=== PATIENT | female | born 1955 | race Caucasian/White ===

== ENCOUNTER 2019-10-30 11:33 | Emergency (ER) | payer BC, OTHER ==
[2019-10-30] MEDS ORDERED: NS 0.9% 1000 ML** 1,000 ML IV ONE (11:49)
[2019-10-30] MEDS ORDERED: methylPREDNISolone 125 MG* 2 ML VIAL IV ONE (11:49)
--- NOTE | 2019-10-30 11:57 | ED ---
Shortness of Breath - HPI Summary HPI Summary: 63-year-old female with a significant past medical history of osteopenia, ulcerative colitis, migraine without aura, supraventricular premature beats, moderate cigarette smoker presents to the emergency department today with chief complaint of shortness of breath, cough, wheezing. Patient was seen by her primary care provider today for follow-up as she has been having these symptoms for approximately 4 weeks. Patient states her symptoms are becoming acutely worse over the last week. One week prior patient had negative results from Covid19 serology. Patient recently finished a Medrol Dosepak with slight improvement in her cough although she still gasps for air frequently. Patient has evidence of accessory muscle use and labored breathing in the emergency department although her oxygen saturation is 100%. No audible wheezing or rales noted. No stridor is appreciated. Patient states she is up-to-date with her immunizations. Patient continues to be a half pack a day smoker. Patient is otherwise well and denies fevers, chest pain, abdominal pain, nausea vomiting diarrhea, rash. - History of Current Complaint Chief Complaint: EDShortnessOfBreath Time Seen by Provider: 10/30/19 11:35 Hx Obtained From: Patient Onset/Duration: Gradual Onset Current Severity: Moderate Dyspnea At: Rest Alleviating Factors: Bronchodilators, Oxygen, Upright Position Associated Signs & Symptoms: Cough (Productive), Wheezing - Allergy/Home Medications Allergies/Adverse Reactions: Allergies Allergy/AdvReac Type Severity Reaction Status Date / Time epinephrine Allergy Flushing Verified 10/30/19 11:51 Sulfa (Sulfonamide Allergy Rash And Verified 10/30/19 11:51 Antibiotics) Itching temazepam Allergy Rash And Verified 10/30/19 11:51 Itching Home Medications: Home Medications Gabapentin CAP(*) [Neurontin 300 CAP(*)] 600 mg PO QID 08/03/14 [History Confirmed 10/30/19] INJ-TFZW-Umbgmebi Es (Nf) [Excedrin Extra Strength 250-250-65 mg (NF)] 1 tab PO Q6H PRN 07/14/19 [History Confirmed 10/30/19] Citalopram TAB* [Celexa TAB*] 40 mg PO DAILY 07/14/19 [History Confirmed ] Omeprazole 20 mg PO DAILY 07/14/19 [History Confirmed 10/30/19] SUMAtriptan SQ* [Imitrex SQ*] 6 mg SUBCUT Q24H PRN 07/14/19 [History Confirmed 10/30/19] buPROPion SR TAB* [Wellbutrin SR TAB*] 200 mg PO BID 07/14/19 [History Confirmed 10/30/19] clonazePAM TAB(*) [Klonopin TAB(*)] 1 tab PO Q8H PRN 07/14/19 [History Confirmed 10/30/19] Albuterol HFA INHALER* [Ventolin HFA Inhaler*] 2 puff INH Q4H PRN 10/30/19 [ History Confirmed 10/30/19] LORazepam TAB(*) [Ativan 1 MG TAB (*)] 1 mg PO Q6H PRN #12 tab MDD 4 10/30/19 [ Rx] PMH/Surg Hx/FS Hx/Imm Hx Endocrine/Hematology History: Denies: Hx Diabetes, Hx Thyroid Disease Cardiovascular History: Denies: Hx Hypertension, Hx Pacemaker/ICD Respiratory History: Denies: Hx Asthma, Hx Chronic Obstructive Pulmonary Disease (COPD) GI History: Reports: Other GI Disorders - HX OF ULCERATIVE COLITIS - NO FLARE UP IN 15 YEARS OR MORE Denies: Hx Ulcer History: Reports: Other Problems/Disorders - FREQUENT UTI'S, NONE NOW Denies: Hx Renal Disease Musculoskeletal History: Reports: Other Musculoskeletal History - CERVICAL FUSION 1994 Denies: Hx Osteoporosis Sensory History: Reports: Hx Cataracts - BILATERAL, Hx Glaucoma - BILATERAL Denies: Hx Hearing Aid Opthamlomology History: Reports: Hx Cataracts - BILATERAL, Hx Glaucoma - BILATERAL Neurological History: Reports: Hx Migraine - 3-4 PER MONTH Psychiatric History: Denies: Hx Panic Disorder - Cancer History Hx Chemotherapy: No Hx Radiation Therapy: No - Surgical History Surgery Procedure, Year, and Place: 1981 Hysterectomy. Bowel obstruction surgeries. Cervical Fusion Hx Anesthesia Reactions: No Infectious Disease History: No Infectious Disease History: Denies: Hx Hepatitis, Hx Human Immunodeficiency Virus (HIV), Traveled Outside the [place] in Last 30 Days - Family History Known Family History: Positive: Cardiac Disease, Hypertension - Social History Alcohol Use: Occasionally Substance Use Type: Reports: Marijuana Substance Use Comment - Amount & Last Used: occasional Hx Tobacco Use: Yes Smoking Status (MU): Heavy Every Day Tobacco Smoker Type: Cigarettes Amount Used/How Often: 1 PPD Length of Time of Smoking/Using Tobacco: 25 YEARS AGO Review of Systems Constitutional: Negative Eyes: Negative ENT: Negative Cardiovascular: Negative Positive: Shortness Of Breath, Cough Gastrointestinal: Negative Genitourinary: Negative Musculoskeletal: Negative Skin: Negative Neurological/Mental Status: Negative Positive: Anxious. Negative: Depressed All Other Systems Reviewed And Are Negative: Yes Physical Exam - Summary Physical Exam Summary: Patient appears to have evidence of accessory muscle use with respiration. Cough is noted however there is no wheezing. No stridor noted. Auscultation of the lungs is clear. Patient is able to speak in 5 word sentences however she does appear fatigued. Triage Information Reviewed: Yes Vital Signs On Initial Exam: Initial Vitals Temp Pulse Resp BP Pulse Ox 97.1 F 103 22 153/100 100 10/30/19 11:43 10/30/19 11:43 10/30/19 11:43 10/30/19 11:43 10/30/19 11:43 Vital Signs Reviewed: Yes Appearance: Positive: Well-Appearing, No Pain Distress, Well-Nourished Skin: Positive: Warm, Skin Color Reflects Adequate Perfusion Eyes: Positive: EOMI, TIFFANIE ENT: Positive: Hearing grossly normal Respiratory/Lung Sounds: Positive: Breath Sounds Present, Decreased Breath Sounds, Fatigue. Negative: Stridor, Wheezes, Unable to speak in full sentences Cardiovascular: Positive: RRR, S1, S2 Abdomen Description: Positive: Nontender, Soft Bowel Sounds: Positive: Present Musculoskeletal: Positive: Strength/ROM Intact Neurological: Positive: Sensory/Motor Intact, Alert, Oriented to Person Place, Time, Normal Gait, Facial Symmetry, Speech Normal Psychiatric: Positive: Affect/Mood Appropriate, Anxious AVPU Assessment: Alert Procedures - Sedation Patient Received Moderate/Deep Sedation with Procedure: No Diagnostics - Vital Signs Vital Signs Temp Pulse Resp BP Pulse Ox 10/30/19 11:43 97.1 F 103 22 153/100 100 - Laboratory Result Diagrams: 10/30/19 13:57 10/30/19 13:00 Lab Statement: Any lab studies that have been ordered have been reviewed, and results considered in the medical decision making process. Course/Dx - Course Course Of Treatment: Patient was evaluated in the emergency department today for shortness of breath. Patient was tested for covid 19 today and the Department of Health will contact her in 2-3 days with results. Patient was sent here from her primary care's office to due to shortness of breath. EKG was done promptly which shows no evidence of STEMI. Sinus rhythm at a rate of 73 bpm. Mild left axis deviation. Normal IN and QT interval. There are T-wave inversions noted in lead 2, 3, aVF, V4. T-wave inversions are new when compared to prior EKG done on 11/14/11 this is likely due to increased respiratory effort. Chest x-ray is negative for pathology. Laboratory studies returned showing no evidence of leukocytosis with white blood cell count of 7.0. There are no significant likely derangements. No evidence of anemia. Normal kidney function. BNP is within normal limits, troponin 0.00. Lactic acid returned at 3.6 which is likely elevated due to hyperventilation. Venous blood gas returned showing pH of 7.58 with a PCO2 of 23 and bicarbonate of 24.8. Patient is in respiratory alkalosis. D-dimer negative. Due to patient s symptoms CTA of the chest was obtained to further evaluate possibility of pulmonary embolism. CTA shows no evidence of pulmonary artery filling defect consistent with pulmonary embolism. Patients symptoms appear to be linked to anxiety. Patient is in no acute distress her vital signs are stable with no evidence of hypoxia. Patient discharged to outpatient follow-up. - Diagnoses Differential Diagnosis/HQI/PQRI: Positive: Airway Obstruction, Airway Foreign Body, Asthma, Bronchitis, CHF, COPD Exacerbation, Pneumonia, Pulmonary Embolism , SARS Provider Diagnoses: Dyspnea, Hyperventilation, Anxiety - Critical Care Time Critical Care Statement: Critical care time is provided exclusive of any time spent performing procedures. Discharge ED - Sign-Out/Discharge Documenting (check all that apply): Patient Departure - Discharge Plan Condition: Stable Disposition: HOME Prescriptions: LORazepam TAB(*) [Ativan 1 MG TAB (*)] 1 mg PO Q6H PRN #12 tab MDD 4 PRN Reason: Anxiety Patient Education Materials: Dyspnea (ED) Forms: COVID-19 Tested & Isolation Referrals: Sadia German MD [Primary Care Provider] - 2 Days Additional Instructions: Please take antianxiety medications as directed. Please not drive taking this medicine. Please follow up with your primary care provider in 2-3 days for further evaluation and management. Please return to this emergency department immediately should you develop any new or worsening symptoms. - Billing Disposition and Condition Condition: STABLE Disposition: Home
[2019-10-30] MEDS ORDERED: clonazePAM TAB(*) 1 MG PO ONE (12:02)
--- OUTSIDE RECORDS SUMMARY | 2019-10-30 12:06 | XMS REPORT | Continuity of Care Document ---
:1955 External Reference #:[id number] Author Name Charisma Serrano MD (transmitted by agent of provider Nadia Brandon) Address [address], [place] [address] Care Team Providers Name Role Phone Sadia German M.D. 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 Onset: 12/11/2011 Supraventricular premature beats Feroz Alvarenga M.D. Onset: 2011 Migraine without aura Peyton Hurtado M.D. Onset: 12/08/2015 Low back pain Peyton Hurtado M.D. Onset: 12/08/2015 Ulcerative colitis Morales Rolon NP Onset: 03/07/2017 Restless legs Fidel Rodriguez M.D.,FACP Onset: 08/15/2017 Moderate cigarette smoker (10-19 Fidel Rodriguez M.D.,FACP Onset: 2017 cigs/day) Osteopenia Fidel Rodriguez M.D.,FACP Onset: 02/27/2018 Social History Type Date Description Comments Sex Unknown Tobacco Use Start: Unknown Patient is a current cigarette smoker, smokes every day Tobacco Use Start: Unknown Current Cigarette 3/4 - Smoker 1 Pack Daily Smoking Status Reviewed: 08/03/19 Current Cigarette 3/4 - Smoker 1 Pack Daily ETOH Use Rarely consumes alcohol Tobacco Use Start: Unknown Heavy tobacco smoker 15 cigarettes per day (more than 10 cigarettes/day) Recreational Drug Use Denies Drug Use Exercise Type/Frequency Exercises regularly walking Allergies, Adverse Reactions, Alerts Active Allergies Reaction Severity Comments Date Sulfa Antibiotics 12/05/2011 Restoril 12/05/2011 Epinephrine elevated heart rate, flushing 12/11/2011 Chantix Depression Severe 01/05/2015 Medications Active Medications SIG Qnty Indications Ordering Date Provider Amoxicillin 1 by mouth three 30caps J01.90 Charisma Serrano MD 08/03/2019 500mg times a day Capsules Citalopram 1 by mouth every 90tabs F32.1 Karolyn Manley, 05/01/2019 Hydrobromide amarilis MALHOTRA 40mg Tablets Bupropion take 1 tab twice 180tabs F32.1 Morales Rolon NP 12/24/2018 Hydrochloride ER (SR) daily 200mg Tablets ER 12HR Clonazepam 1 by mouth every 50tabs F41.9 Morales Rolon NP 12/10/2018 0.5mg 8 hours as needed Tablets for anxiety, use sparingly Zolpidem Tartrate take 1/2 to 1 30tabs G47.00 Morales Rolon NP 11/07/2018 10mg tablet by mouth Tablets every night at bedtime as needed Premarin 0.5g per vagina 30gm Sadia German MD 08/26/2018 0.625mg/GM at bedtime every Cream night at bedtime x 14 nights then 2x/week Sumatriptan Succinate one SC as needed 3ml G43.909 Drew Palma 06/10/2018 for migraine. savannah Estrada M.D. 6mg/0.5ML Solution repeat once in 24 Auto-Inject hrs Gabapentin take 1 tablet by 240tabs Sadia German MD 12/09/2013 600mg mouth every day Tablets at noon then take 3 tablets by mouth every day at bedtime Omeprazole take 1 capsule by 90caps Morales Rolon NP 20mg mouth every day Capsules DR Cefuroxime Axetil 1 tabs by mouth Unknown 500mg twice a day for Tablets 10 days Azithromycin Take Two Tablets Unknown 250mg By Mouth Now, Tablets Then Then Take 1 Tablet By Mouth Every Day Vancomycin Christiano Woods, 125mg M.D. Capsules Immunizations CPT Code Status Date Vaccine Reaction Lot # [id number] Given 04/29/2019 Influenza Virus Vaccine, no immediate reaction. [id number] Quadrivalent, Split, dg Preservative Free 65905 Given 06/10/2018 Influenza Virus Vaccine, [id number] Quadrivalent, Split, Preservative Free 84427 Given 05/06/2017 Pneumonia Vaccine no reaction, pt [id number] tolerated well 37979 Given 05/06/2017 Influenza Virus Vaccine, no immediate reaction, [id number] Quadrivalent, Split, pt tolerated well Preservative Free Vital Signs Date Vital Result Comment 08/03/2019 3:30pm Height 66 inches 5'6" Weight 168.00 lb Heart Rate 68 /min BP Systolic 142 mmHg BP Diastolic 82 mmHg Body Temperature 98.1 F O2 % BldC Oximetry 96 % BMI (Body Mass Index) 27.1 kg/m2 06/10/2019 1:45pm Height 65.75 inches 5'5.75" Weight 177.00 lb Heart Rate 79 /min BP Systolic Sitting 140 mmHg BP Diastolic Sitting 92 mmHg O2 % BldC Oximetry 98 % BMI (Body Mass Index) 28.8 kg/m2 Results Test Acquired Date Facility Test Result H/L Range Note Surgical 07/21/2019 [facility] Surgical SEE RESULT [address] [place] [address] [phone] PDFReport SEE IMAGE Basic Metabolic 06/10/2019 [facility] Sodium 141 mmol/L Normal 135-145 Panel [address] [place] [address] [phone] Potassium 4.2 mmol/L Normal 3.5-5.0 Chloride 104 mmol/L Normal 101-111 Co2 Carbon Dioxide 30 mmol/L Normal 22-32 Anion Gap 7 mmol/L Normal 2-11 Glucose 86 mg/dL Normal 70-100 Blood Urea Nitrogen 17 mg/dL Normal 6-24 Creatinine 0.97 mg/dL High 0.51-0.95 BUN/Creatinine Ratio 17.5 Normal 8-20 Calcium 9.6 mg/dL Normal 8.6-10.3 Egfr Non- 58.0 >60 Egfr 70.2 >60 2 Laboratory test 06/10/2019 [facility] Magnesium 2.0 mg/dL Normal 1.9-2.7 finding [address] [place] [address] [phone] CBC Auto Diff 04/29/2019 [facility] White Blood 5.7 Normal 3.5 -10.[address] Count 10^3/[place] [address] [phone] Red Blood Count 4.74 10^6/uL Normal 3.70-4.87 Hemoglobin 15.0 g/dL Normal 12.0-16.0 Hematocrit 44 % Normal 35-47 Mean Corpuscular Volume 92 fL Normal 80-97 Mean Corpuscular Hemoglobin 32 pg High 27-31 Mean Corpuscular HGB Conc 34 g/dL Normal 31-36 Red Cell Distribution Width 16 % High 10-15 Platelet Count 215 10^3/uL Normal 150-450 Mean Platelet Volume 8.6 fL Normal 7.4-10.4 Abs Neutrophils 3.6 10^3/uL Normal 1.5-7.7 Abs Lymphocytes 1.5 10^3/uL Normal 1.0-4.8 Abs Monocytes 0.4 10^3/uL Normal 0-0.8 Abs Eosinophils 0.2 10^3/uL Normal 0-0.6 Abs Basophils 0.0 10^3/uL Normal 0-0.2 Abs Nucleated RBC 0.0 10^3/uL Granulocyte % 62.9 % Lymphocyte % 26.3 % Monocyte % 7.3 % Eosinophil % 2.8 % Basophil % 0.7 % Nucleated Red Blood Cells % 0.1 Comp Metabolic 04/29/2019 [facility] Sodium 138 mmol/L Normal 135-[address] [place] [address] [phone] Potassium 4.6 mmol/L Normal 3.5-5.0 Chloride 105 mmol/L Normal 101-111 Co2 Carbon Dioxide 27 mmol/L Normal 22-32 Anion Gap 6 mmol/L Normal 2-11 Glucose 92 mg/dL Normal 70-100 Blood Urea Nitrogen 21 mg/dL Normal 6-24 Creatinine 0.83 mg/dL Normal 0.51-0.95 BUN/Creatinine Ratio 25.3 High 8-20 Calcium 9.7 mg/dL Normal 8.6-10.3 Total Protein 6.5 g/dL Normal 6.4-8.9 Albumin 4.1 g/dL Normal 3.2-5.2 Globulin 2.4 g/dL Normal 2-4 Albumin/Globulin Ratio 1.7 Normal 1-3 Total Bilirubin 0.40 mg/dL Normal 0.2-1.0 Alkaline Phosphatase 63 U/L Normal 34-104 Alt 17 U/L Normal 7-52 Ast 19 U/L Normal 13-39 Egfr Non- 69.4 >60 Egfr 84.0 >60 3 1 SEE RESULT BELOW Name: CLAIRE MORENO : [address]: Christiano Gomez DO Acct: [id number] Unit: [id number] AGE: 63 Location: ENDO Re07/21/19 SEX: F Status: DEP REF SPEC: [id number] MAIRA: 07/21/19- SUBM DR: Christiano Gomez DO REQ: [id number] RECD: 07/21/19-1202 STATUS: BALDEV COLBERT DR: Sadia German MD _ ORDERED: LEVEL 4/2 FINAL DIAGNOSIS 1. Colon, random, biopsy: -- Benign colonic mucosa with no significant pathologic abnormalities. -- No evidence of microscopic colitis. 2. Colon, rectum, biopsy: -- Benign colonic mucosa with surface vascular congestion and no other significant pathologic abnormalities. -- No evidence of active or chronic colitis. -- No evidence of microscopic colitis. CLINICAL HISTORY Diarrhea POST-OPERATIVE DIAGNOSIS Colonoscopy: to terminal ileum; good prep; internal hemorrhoid; biopsy random GROSS DESCRIPTION 1. The specimen is received in formalin labeled, Random Colon Biopsies, and consists of a 0.8 x 0.5 x 0.1 cm aggregate of reynolds-pink irregular soft tissue fragments which is submitted entirely in one cassette. CONTINUED ON NEXT PAGE DEPARTMENT OF PATHOLOGY, [address] [place] [address] Yann Cabrales M.D. Director [facility] # [id number] 2. The specimen is received in formalin labeled, Proctitis Biopsies, and consists of two reynolds-pink irregular soft tissue fragments averaging 0.3 x 0.2 x 0.1 cm which are submitted entirely in one cassette. Signed by and Reported on: Shanti Dodd MD 07/22/19 1549 END OF REPORT DEPARTMENT OF PATHOLOGY, [address] [place] [address] Yann Cabrales M.D. Director [facility] # [id number] 2 Because ethnic data is not always readily available, this report includes an eGFR for both -Americans and non- Americans. The National Kidney Disease Education Program (NKDEP) does not endorse the use of the MDRD equation for patients that are not between the ages of 18 and 70, are , have extremes of body size, muscle mass, or nutritional status, or are non- or non-. According to the National Kidney Foundation, irrespective of diagnosis, the stage of the disease is based on the level of kidney function: Stage Description GFR(mL/min/1.73 m(2)) 1 Kidney damage with normal or decreased GFR 90 2 Kidney damage with mild decrease in GFR 60-89 3 Moderate decrease in GFR 30-59 4 Severe decrease in GFR 15-29 5 Kidney failure <15 (or dialysis) 3 Because ethnic data is not always readily available, this report includes an eGFR for both -Americans and non- Americans. The National Kidney Disease Education Program (NKDEP) does not endorse the use of the MDRD equation for patients that are not between the ages of 18 and 70, are , have extremes of body size, muscle mass, or nutritional status, or are non- or non-. According to the National Kidney Foundation, irrespective of diagnosis, the stage of the disease is based on the level of kidney function: Stage Description GFR(mL/min/1.73 m(2)) 1 Kidney damage with normal or decreased GFR 90 2 Kidney damage with mild decrease in GFR 60-89 3 Moderate decrease in GFR 30-59 4 Severe decrease in GFR 15-29 5 Kidney failure <15 (or dialysis) Procedures Date Code Description Status 07/11/2018 [id number] Mammogram Completed 08/22/2017 [id number] Bone Mineral Density Test Completed 06/17/2013 [id number] Colonoscopy Completed Medical Devices Description No Information Available Encounters Type Date Location Provider Dx Diagnosis Office Visit 10/08/2019 [facility] Internal Charisma Serrano MD J01.90 Acute sinusitis, 2:20p Medicine - [place] unspecified Office Visit 08/03/2019 [facility] Internal Charisma Serrano MD J01.90 Acute sinusitis, 3:40p Medicine - [place] unspecified Office Visit 06/10/2019 [facility] Internal Karolyn Manley F33.1 Major depressive 2:00p Medicine Zoran Carlos MD disorder, recurrent, moderate F41.9 Anxiety disorder, unspecified Office Visit 04/29/2019 11:00a [facility] Internal Karolyn F33.1 Major depressive Medicine - [place] Manley MD disorder, recurrent, moderate F41.9 Anxiety disorder, unspecified Z23 Encounter for immunization Assessments Date Code Description Provider 10/08/2019 J01.90 Acute sinusitis, unspecified Charisma Serrano MD 08/03/2019 J01.90 Acute sinusitis, unspecified Charisma Serrano MD 06/10/2019 F33.1 Major depressive disorder, recurrent, moderate Karolyn Manley MD 06/10/2019 F41.9 Anxiety disorder, unspecified Karolyn Manley MD 04/29/2019 F33.1 Major depressive disorder, recurrent, moderate Karolyn Manley MD 04/29/2019 F41.9 Anxiety disorder, unspecified Karolyn Manley MD 04/29/2019 Z23 Encounter for immunization Karolyn Manley MD Plan of Treatment No Information Available Functional Status Description No Information Available Mental Status Description No Information Available Referrals Description No Information Available
--- OUTSIDE RECORDS SUMMARY | 2019-10-30 12:06 | XMS REPORT | Continuity of Care Document ---
:1955 External Reference #:[id number] Author Name Charisma Serrano MD Address [address] [place] [address], [place] [address] Care Team Providers Name Role Phone Sadia German M.D. - Family Medicine Care Team Information Rhinologist Problems Active Problems Provider Date Tobacco user [...] Rolon NP 20mg mouth every day Capsules Cefuroxime Axetil 1 tabs by mouth Unknown 500mg twice a day for Tablets 10 days Azithromycin Take Two Tablets Unknown 250mg By Mouth Now, Tablets Then Then Take 1 Tablet By Mouth Every Day Vancomycin HCL Christiano Gomez 125mg M.D. Capsules Immunizations CPT Code Status Date Vaccine Reaction Lot # [id number] Given 04/29/2019 Influenza Virus Vaccine, no immediate reaction. [id number] Quadrivalent, Split, dg Preservative Free 35922 Given 06/10/2018 Influenza Virus Vaccine, [id number] Quadrivalent, Split, Preservative Free 95551 Given 05/06/2017 Pneumonia Vaccine no reaction, pt [id number] tolerated well 75664 Given 05/06/2017 Influenza Virus Vaccine, no immediate [...] Test Result H/L Range Note Surgical 07/21/2019 [facility] Surgical SEE RESULT [address] [place] [address] [phone] PDFReport SEE IMAGE Basic Metabolic 06/10/2019 [facility] Sodium 141 mmol/L Normal 135-145 [place] [address] [phone] Potassium 4.2 mmol/L Normal 3.5-5.0 Chloride 104 mmol/L Normal 101-111 Co2 Carbon Dioxide 30 mmol/L Normal 22-32 Anion Gap 7 mmol/L Normal 2-11 Glucose 86 mg/dL Normal 70-100 Blood Urea Nitrogen 17 mg/dL Normal 6-24 Creatinine 0.97 mg/dL High 0.51-0.95 BUN/Creatinine Ratio 17.5 Normal 8-20 Calcium 9.6 mg/dL Normal 8.6-10.3 Egfr Non- 58.0 >60 Egfr 70.2 >60 2 Laboratory test 06/10/2019 [facility] Magnesium 2.0 mg/dL Normal 1.9-2.[address] [place] [address] [phone] CBC Auto Diff 04/29/2019 [facility] White Blood 5.7 Normal 3.5 -10.8 [address] [facility] Count 10^3/[place] [address] [phone] Red Blood Count 4.74 10^6/uL Normal 3.70-4.87 [...] Blood Cells % 0.1 Comp Metabolic 04/29/2019 [facility] Sodium 138 mmol/L Normal 135-[address] [place] [address] [phone] Potassium 4.6 mmol/L Normal 3.5-5.0 Chloride 105 [...] [address]: Christiano Gomez DO Acct: [id number] Unit: [id number] AGE: 63 Location: ENDO Re07/21/19 SEX: F Status: DEP REF SPEC: [id number] MAIRA: 07/21/19- SUBM DR: Christiano Gomez DO REQ: [id number] RECD: 07/21/19 STATUS: BALDEV COLBERT DR: Sadia German MD [...] CONTINUED ON NEXT PAGE DEPARTMENT OF PATHOLOGY, [address] [place] [address] Yann Cabrales M.D. Director [facility] # [id number] 2. The specimen is received in formalin labeled, Proctitis Biopsies, and consists of two reynolds-pink irregular soft tissue fragments averaging 0.3 x 0.2 x 0.1 cm which are submitted entirely in one cassette. Signed by and Reported on: Shanti Dodd MD 07/22/19 1549 END OF REPORT DEPARTMENT OF PATHOLOGY, [address] [place] [address] Yann Cabrales M.D. Director [facility] # [id number] 2 Because ethnic data is not always [...] dialysis) Procedures Date Code Description Status 07/11/2018 77571661 Mammogram Completed 08/22/2017 866272510 Bone Mineral Density Test Completed 06/17/2013 66358581 Colonoscopy Completed Medical Devices Description No Information Available Encounters Type Date Location Provider Dx Diagnosis Office Visit 08/03/2019 [facility] Internal Charisma Serrano MD J01.90 Acute sinusitis, 3:40p Medicine - Breanna unspecified Office Visit 06/10/2019 [facility] Internal Karolyn Manley F33.1 Major depressive 2:00p Medicine - Breanna MALHOTRA disorder, recurrent, moderate F41.9 Anxiety disorder, unspecified Office Visit 04/29/2019 11:00a [facility] Internal Karolyn F33.1 Major depressive Medicine [...] immunization Karolyn Manley MD Plan of Treatment 10/08/2019 - Charisma Serrano MDJ01.90 Acute sinusitis, unspecifiedComments:If fever does not resolve within 24 hours of starting the antibiotic please do get tested for the COVID virusWe discussed that you can get that information from the website of [facility] Functional Status Description No Information Available Mental Status Description No Information Available Referrals Description No Information Available
--- OUTSIDE RECORDS SUMMARY | 2019-10-30 12:06 | XMS REPORT | Continuity of Care Document ---
:1955 External Reference #:[id number] Author Name Christiano Gomez DO (transmitted by agent of provider Radha Lemons) Address [address] [place] [id number] Care Team Providers Name Role Phone Sadia German M.D. 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 Program Director [phone] Problems Active Problems Provider Date Dyspnea DIANNE Peña-Zulema Onset: 11/22/2011 Muscle weakness BECKY Peña Onset: 11/22/2011 Disorder of rectum Chucky Engel MD Onset: 04/28/2013 Depressive disorder Chucky Engel MD Onset: 10/01/2015 Ulcerative proctocolitis Chucky Engel MD Onset: 10/01/2015 Low back pain Onset: 12/08/2015 Migraine without aura Onset: 12/08/2015 Moderate cigarette smoker (10-19 cigs/day) Onset: 02/27/2018 Osteopenia Onset: 02/27/2018 Restless legs Onset: 08/15/2017 Supraventricular premature beats Onset: 04/07/2012 Tobacco user Onset: 12/11/2011 Ulcerative colitis Onset: 03/07/2017 Social History Type Date Description Comments Sex Unknown Tobacco Use Start: Unknown Patient is a current smoker, smokes every day Smoking Status Reviewed: 05/04/19 Patient is a current smoker, smokes every day Allergies, Adverse Reactions, Alerts Active Allergies Reaction Severity Comments Date Sulfa Antibiotics 10/26/2011 Restoril 10/26/2011 Varenicline Tartrate Free Text Severe 08/18/2018 Epinephrine Free Text, flushing 08/18/2018 Medications Active Medications SIG Qnty Indications Ordering Date Provider Vancomycin HCL 1 tablet by mouth 56caps Christiano Gomez, 05/11/2019 125mg four times a day DO Capsules x14 days solution may be substituted Peg use as directed 4000ml Christiano Jason, 05/04/2019 3350/Electrolytes DO 240gm Solution Rec Fluticasone 2 sprays each 16units J01.90 Sadia German, 07/14/2018 Propionate nostril twice a day M.D. 50mcg/Act Suspension Sumatriptan one SC as needed 3units G43.909 Sadia German, 06/10/2018 Succinate for migraine. november M.D. 6mg/0.5ML repeat once in 24 Solution Auto-Inject hrs Excedrin Extra Q6H prn For Pain Unknown 08/14/2013 Strength [phone] Tablets Omeprazole 1 by mouth every 30caps Chucky Shaffer 04/28/2013 20mg day Toro MALHOTRA Capsules DR Wellbutrin SR Daily Unknown 200mg Tablets ER 12HR Neurontin 4 Tabs Daily Unknown 300mg Capsules Clonazepam Every 8 Hours prn Unknown 0.5mg Tablets Citalopram Daily Unknown Hydrobromide 40mg Tablets Immunizations CPT Code Status Date Vaccine Lot # [id number] Given 06/10/2018 Influenza Virus Vaccine, Quadrivalent, Split, Preservative Free 39577 Given 05/06/2017 Pneumovax 62450 Given 05/06/2017 Influenza Virus Vaccine, Quadrivalent, Split, Preservative Free 61136 Given 06/13/2005 Influenza Virus Vaccine, Split Virus, Im Vital Signs Date Vital Result Comment 05/04/2019 1:07pm Height 66 inches 5'6" Weight 180.00 lb BP Systolic 152 mmHg BP Diastolic 97 mmHg Heart Rate 71 /min BMI (Body Mass Index) 29.0 kg/m2 09/09/2018 3:58pm Height 66 inches 5'6" Weight 168.00 lb BP Systolic 126 mmHg BP Diastolic 88 mmHg Heart Rate 104 /min BMI (Body Mass Index) 27.1 kg/m2 Results Test Acquired Date Facility Test Result H/L Range Note Surgical 07/21/2019 [facility] Surgical SEE RESULT 1 Pathology Pathology BELOW PDFReport SEE IMAGE Laboratory test finding 05/08/2019 [facility] C Difficile PCR SEE RESULT BELOW 2, 3 Laboratory test finding 05/07/2019 [facility] Stool Culture SEE RESULT BELOW 4, 5 1 SEE RESULT BELOW Name: ANTOINETTE MORENO : [address]: Christiano Gomez DO Acct: [id number] Unit: [id number] AGE: 63 Location: ENDO Re07/21/19 SEX: F Status: DEP REF SPEC: [id number] MAIRA: 07/21/19- SUBM DR: Christiano Gomez DO REQ: [id number] RECD: 07/21/19-1202 STATUS: BALDEV COLBERT DR: Sadia [...] CONTINUED ON NEXT PAGE DEPARTMENT OF PATHOLOGY, [address] [place] [address] Yann Cabrales M.D. Director [facility] # [id number] 2. The specimen is received in formalin labeled, Proctitis Biopsies, and consists of two reynolds-pink irregular soft tissue fragments averaging 0.3 x 0.2 x 0.1 cm which are submitted entirely in one cassette. Signed by and Reported on: Shanti Dodd MD 07/22/19 1549 END OF REPORT DEPARTMENT OF PATHOLOGY, [address] [place] [address] Yann Cabrales M.D. Director [facility] # [id number] SEE RESULT BELOW Name: ANTOINETTE MORENO : [address]: Christiano Gmoez DO Acct: [id number] Unit: [id number] AGE: 63 Location: ENDO Re07/21/19 SEX: F Status: DEP REF SPEC: [id number] MAIRA: 07/21/19- SUBM DR: Christiano Gomez DO REQ: [id number] RECD: 07/21/19-1202 STATUS: BALDEV COLBERT DR: Sadia [...] CONTINUED ON NEXT PAGE DEPARTMENT OF PATHOLOGY, [address] [place] [address] Yann Cabrales M.D. Director [facility] # [id number] 2. The specimen is received in formalin labeled, Proctitis Biopsies, and consists of two reynolds-pink irregular soft tissue fragments averaging 0.3 x 0.2 x 0.1 cm which are submitted entirely in one cassette. Signed by and Reported on: Shanti Dodd MD 07/22/19 1549 END OF REPORT DEPARTMENT OF PATHOLOGY, [facility] [employer] [place] [address] Yann Cabrales M.D. Director [facility] # [id number] SEE RESULT BELOW Name: ANTOINETTE MORENO : [address]: Christiano Gomez DO Acct: [id number] Unit: [id number] AGE: 63 Location: ENDO Re07/21/19 SEX: F Status: DEP REF SPEC: [id number] MAIRA: 07/21/19- SUBM DR: Christiano Gomez DO REQ: [id number] RECD: 07/21/19-1202 STATUS: BALDEV COLBERT DR: Sadia [...] CONTINUED ON NEXT PAGE DEPARTMENT OF PATHOLOGY, [address] [place] [address] Yann Cabrales M.D. Director [facility] # [id number] 2. The specimen is received in formalin labeled, Proctitis Biopsies, and consists of two reynolds-pink irregular soft tissue fragments averaging 0.3 x 0.2 x 0.1 cm which are submitted entirely in one cassette. Signed by and Reported on: Shanti Dodd MD 07/22/19 1549 END OF REPORT DEPARTMENT OF PATHOLOGY, [address] [place] [address] Yann Cabrales M.D. Director [facility] # [id number] 2 [id number] 3 SEE RESULT BELOW Name: ANTOINETTE MORENO : [address]: Christiano Gomez DO Acct: [id number] Unit: [id number] AGE: 63 Location: [facility] Re05/08/19 SEX: F Status: REG REF SPEC: [id number] MAIRA: 05/08/19-[address] [facility] [address]: Christiano Gomez DO REQ: [id number] RECD: 05/08/19700 STATUS: COMP _ SOURCE: STOOL SPDES: ORDERED: C. diff PCR, Fecal Lactoferr COMMENTS: [id number] Procedure Result Reported Site Stool Specimen Description Final 05/08/19- 1637 ML Stool Color Light Brown Stool Form Nonformed Stool Consistency Mucoid C. difficile PCR Final 05/08/19- 1801 ML Organism 1 027 Presumptive NEGATIVE Organism 2 Toxigenic C.diff POSITIVE As with all diagnostic procedures, the laboratory results obtained should be used in conjunction with other clinical information available to the physician, including confirmation by another method, as applicable. Fecal Lactoferrin (Stool WBC) Final 05/09/19- 0653 ML Fecal Lactoferrin Positive by Immunoassay TEST LIMITATIONS: Assay detects elevated levels of lactoferrin released from fecal leukocytes as a marker of intestinal inflammation. The test may not be appropriate in immunocompromised persons. Fecal samples from breast fed infants should not be used with this assay. * ML - [facility] . END OF REPORT DEPARTMENT OF PATHOLOGY, [address] [place] [address] Yann Cabrales M.D. Director [facility] # [id number] 4 [id number] 5 SEE RESULT BELOW Name: ANTOINETTE MORENO : [address]: Christiano Gomez DO Acct: [id number] Unit: [id number] AGE: 63 Location: [facility] Re05/07/19 SEX: F Status: REG REF SPEC: [id number] MAIRA: 05/07/191205 SUBM DR: Christiano Gomez DO REQ: [id number] RECD: 05/07/193202 STATUS: COMP _ SOURCE: STOOL SPDESC: ORDERED: Stool Culture, O P: Giar/Crypt COMMENTS: [id number] Procedure Result Reported Site Stool Culture Final 05/09/19- 1147 ML Result No enteric pathogens isolated Testing for Salmonella, Shigella, Aeromonas, Plesiomonas, Yersinia and Campylobacter are included in a Stool Culture. Vibrio spp not routinely tested for in a stool culture. If testing is desired, please request specifically when placing test order. Sensitivities not routinely performed on stool isolates, as antibiotics may prolong the carriage rate of bacteria. Please contact the microbiology lab if sensitivities are required. Stool Specimen Description Final 05/07/19- 1632 ML Test not performed Shiga Toxin 1 2 Final 05/08/19- 1214 ML Organism 1 Negative Shiga Toxin 1 2 Immunochromatographic Assay. As with all diagnostic procedures, the laboratory results obtained should be used in conjunction with other clinical information available to the physician, including confirmation by another method, as applicable. CONTINUED ON NEXT PAGE DEPARTMENT OF PATHOLOGY, [address] [place] [address] Yann Cabrales M.D. Director [facility] # [id number] Patient: ANTOINETTE MORENO [id number] (Continued) Specimen: [id number] Collected: 05/07/19 Received: 05/07/19 (Continued) Procedure Result Reported Site Shiga Toxin 1 2 Final (continued) 05/08/19- 1214 O P: Giardia/Cryptospor Screen Final 05/08/19- 1001 ML Organism 1 Neg Cryptosporidium/Giardia Giardia and cryptosporidium antigen testing performed by enzyme immunoassay. If patient is immunocompromised or has traveled to or is from a developing country, a full ova and parasite exam with microscopic (OPMIC) is recommended. All samples will be held 21 days in case full ova and parasite testing is requested. Contact the Microbiology Department at [phone]. TEST LIMITATIONS: As with all diagnostic procedures, the results obtained should be used in conjunction with other clinical information available to the physician, including confirmation by another method. Negative results can occur in samples containing antigen below lower limits of detection of the assay. One negative specimen does not rule out the possibility of a parasitic infection. To improve detection it is recommended that three specimens be collected on separate days over a period of not more than seven days. The use of colonic washes, aspirates or other diluted sample types has not been established and could affect the performance of the assay. Stool samples contaminated with an oily or particulate base (eg. Barium, mineral oil etc.) could interfere with the test and are not recommended. * ML - Main Lab . END OF REPORT DEPARTMENT OF PATHOLOGY, [address] [place] [address] Yann Cabrales M.D. Director [facility] # [id number] Procedures Date Code Description Status 07/21/2019 90037 Moderate Sedation Services; Same Phys Each Additional 15 Completed Mins 07/21/2019 22848 Moderate Sedation Services; Same Phys Intl 15 Mins; PT >= Completed 5 Years 07/21/2019 10226 Colonscopy+Biopsy Completed Medical Devices Description No Information Available Encounters Type Date Location Provider Dx Diagnosis Office Visit 05/04/2019 Gastroenterology Christinao Gomez, R19.7 Diarrhea, 1:00p [facility] DO unspecified K51.20 Ulcerative (chronic) proctitis without complications R15.1 Fecal smearing Assessments Date Code Description Provider 07/21/2019 R19.7 Diarrhea, unspecified Christiano Jason, DO 07/21/2019 K64.8 Other hemorrhoids Christiano Gomez, DO 05/04/2019 R19.7 Diarrhea, unspecified Christiano Jason, DO 05/04/2019 K51.20 Ulcerative (chronic) proctitis without Christiano Jason, DO complications 05/04/2019 R15.1 Fecal smearing Christiano Gomez DO Plan of Treatment No Information Available Functional Status Description No Information Available Mental Status Description No Information Available Referrals Description No Information Available
--- OUTSIDE RECORDS SUMMARY | 2019-10-30 12:06 | XMS REPORT | Continuity of Care Document ---
:1955 External Reference #:[id number] Author Name Sadia German MD Address [address] [place] [address], [place] [address] Care Team Providers Name Role Phone Sadia German M.D. 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 Onset: 12/11/2011 Supraventricular premature beats Feroz Alvarenga M.D. Onset: 2011 Migraine without aura Peyton Hurtado M.D. Onset: 12/08/2015 Low back pain Peyton Hurtado M.D. Onset: 12/08/2015 Ulcerative colitis Morales Rolon NP Onset: 03/07/2017 Restless legs Fidel Rodriguze M.D.,FACP Onset: 08/15/2017 Moderate cigarette smoker (10-19 [...] Medications SIG Qnty Indications Ordering Date Provider Ventolin HFA 2 by mouth every 8gm J06.9 Sadia German MD 10/23/2019 4 hours as needed 108(90Base) mcg/Act Aerosol Citalopram 1 by mouth every 90tabs F32.1 Karolyn Manley, 05/01/2019 Hydrobromide day 40mg Tablets Bupropion take 1 tab twice [...] NP 20mg mouth every day Capsules DR Srinivas Medications Medrol take as directed 21units J06.9 Sadia German MD 10/23/2019 - 4mg TBPK on pack 10/28/2019 Amoxicillin 1 by mouth three 30caps J01.90 Charisma Serrano MD 08/03/2019 - 500mg times a day 10/28/2019 Capsules Immunizations CPT Code Status Date Vaccine Reaction Lot # [id number] Given 04/29/2019 Influenza Virus Vaccine, no immediate reaction. [id number] Quadrivalent, Split, dg Preservative Free 79694 Given 06/10/2018 Influenza Virus Vaccine, 74BL5 Quadrivalent, Split, Preservative Free 86469 Given 05/06/2017 Pneumonia Vaccine no reaction, pt [id number] tolerated well 27706 Given 05/06/2017 Influenza Virus Vaccine, no immediate [...] Mass Index) 28.8 kg/m2 Results Test Acquired Facility Test Result H/L Range Note Date Laboratory 10/20/2019 [facility] Covid19, PCR Undetected Undetected 1 test finding [address] [place] [address] [phone] Surgical 07/21/2019 [facility] Surgical SEE RESULT [address] [facility] [place] [place] [address] [phone] PDFReport SEE IMAGE Basic Metabolic 06/10/2019 [facility] Sodium 141 mmol/L Normal 135-145 Panel [address] [place] [address] [phone] Potassium 4.2 mmol/L Normal 3.5-5.0 Chloride 104 mmol/L Normal 101-111 Co2 Carbon Dioxide 30 mmol/L Normal 22-32 Anion Gap 7 mmol/L Normal 2-11 Glucose 86 mg/dL Normal 70-100 Blood Urea Nitrogen 17 mg/dL Normal 6-24 Creatinine 0.97 mg/dL High 0.51-0.95 BUN/Creatinine Ratio 17.5 Normal 8-20 Calcium 9.6 mg/dL Normal 8.6-10.3 Egfr Non- 58.0 >60 Egfr 70.2 >60 3 Laboratory test 06/10/2019 [facility] Magnesium 2.0 mg/dL Normal 1.9-2.7 finding [address] [place] [address] [phone] 1 SARS-CoV-2 RNA is not detected. ADDITIONAL INFORMATION Testing was performed using the marie SARS-CoV-2 assay ([employer] on the marie 6800 System. Fact sheets for this Emergency Use Authorization (EUA) assay can be found at the following links: For Healthcare Providers: https://www.fda.gov/media/592704/download For Patients: https://www.Socialance.gov/[employer]./137644/download Test Performed by: [place] [address] [employer]: Rolly Bolden M.D. Ph.D.; CLIA# [id number] 2 SEE RESULT BELOW Name: CLAIRE MORENO : [address]: Christiano Gomez DO Acct: [id number] Unit: [id number] AGE: 63 Location: ENDO Re07/21/19 SEX: F Status: DEP REF SPEC: [id number] MAIRA: 07/21/19- SUBM DR: Christiano Gomez DO REQ: [id number] RECD: 07/21/19-1202 STATUS: BALDEV COLBERT DR: Sadia [...] CONTINUED ON NEXT PAGE DEPARTMENT OF PATHOLOGY, [facility] [employer] [place] [id number] Yann Cabrales M.D. Director [facility] # [id number] 2. The specimen is received in formalin labeled, Proctitis Biopsies, and consists of two reynolds-pink irregular soft tissue fragments averaging 0.3 x 0.2 x 0.1 cm which are submitted entirely in one cassette. Signed by and Reported on: Shanti Ddod MD 07/22/19 1549 END OF REPORT DEPARTMENT OF PATHOLOGY, [facility] [employer] [place], [place] [address] Yann Cabrales M.D. Director [facility] # [id number] 3 Because ethnic data is not always [...] (or dialysis) Procedures Date Code Description Status 07/21/2019 77908383 Colonoscopy Completed 07/11/2018 16282643 Mammogram Completed 08/22/2017 500555450 Bone Mineral Density Test Completed 06/17/2013 81882654 Colonoscopy Completed Medical Devices Description No Information Available Encounters Type Date Location Provider Dx Diagnosis Office Visit 10/30/2019 [facility] Internal Sadia German MD J06.9 Acute upper 10:20a Medicine - [facility] respiratory infection, unspecified Office Visit 10/23/2019 [facility] Internal Sadia German MD J06.9 Acute upper 10:40a Medicine - [facility] respiratory infection, unspecified R63.4 Abnormal weight loss Office Visit 10/08/2019 2:20p [facility] Internal Charisma Serrano MD J01.90 Acute sinusitis, Medicine - unspecified [facility] Office Visit 08/03/2019 3:40p [facility] Internal Charisma Serrano MD J01.90 Acute sinusitis, Medicine - unspecified [facility] Office Visit 06/10/2019 2:00p [facility] Internal Karolyn F33.1 Major depressive Marleen Manley MD disorder, [facility] recurrent, moderate F41.9 Anxiety disorder, unspecified Assessments Date Code Description Provider 10/30/2019 J06.9 Acute upper respiratory infection, unspecified Sadia German MD 10/23/2019 J06.9 Acute upper respiratory infection, unspecified Sadia German MD 10/23/2019 R63.4 Abnormal weight loss Sadia German MD 10/08/2019 J01.90 Acute sinusitis, unspecified Charisma Serrano MD 08/03/2019 J01.90 Acute sinusitis, unspecified Charisma Serrano MD 06/10/2019 F33.1 Major depressive disorder, recurrent, moderate Karolyn Manley MD 06/10/2019 F41.9 Anxiety disorder, unspecified Karolyn Manley MD Plan of Treatment No Information Available Functional Status Description No Information Available Mental Status Description No Information Available Referrals Description No Information Available
--- OUTSIDE RECORDS SUMMARY | 2019-10-30 12:06 | XMS REPORT | Continuity of Care Document ---
:1955 External Reference #:[id number] Author Name Sadia German MD (transmitted by agent of provider Dominique Murray) Address [address] [facility] [place], [address] [place] [id number] Care Team Providers Name Role Phone Sadia German M.D. 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 Provider Date Tobacco user [...] Medications SIG Qnty Indications Ordering Date Provider Venttrey HFA 2 by mouth every 8gm J06.9 Sadia German MD 10/23/2019 4 hours as needed 108(90Base) mcg/Act Aerosol Medrol take as directed 21units J06.9 Sdaia German MD 10/23/2019 4mg TBPK on pack Amoxicillin 1 by mouth three 30caps J01.90 Charisma Serrano MD 08/03/2019 500mg times a day Capsules Citalopram 1 by mouth every 90tabs F32.1 Karolyn Manley 05/01/2019 Hydrobromide day 40mg Tablets Bupropion take [...] NP 20mg mouth every day Capsules DR Azithromycin Take Two Tablets Unknown 250mg By Mouth Now, Tablets Then Then Take 1 Tablet By Mouth Every Day Vancomycin HCL Christiano Gomez, 125mg M.D. Capsules Immunizations CPT Code Status Date Vaccine Reaction Lot # [id number] Given 04/29/2019 Influenza Virus Vaccine, no immediate reaction. [id number] Quadrivalent, Split, dg Preservative Free 39431 Given 06/10/2018 Influenza Virus Vaccine, [id number] Quadrivalent, Split, Preservative Free 64187 Given 05/06/2017 Pneumonia Vaccine no reaction, pt [id number] tolerated well 64549 Given 05/06/2017 Influenza Virus Vaccine, no immediate [...] Result H/L Range Note Date Laboratory 10/20/2019 [facility] Covid19, PCR Undetected Undetected 1 test finding [address] [place] [address] [phone] Surgical 07/21/2019 [facility] Surgical SEE RESULT 2 Pathology [address] [facility] [place] [place] [address] [phone] PDFReport SEE IMAGE Basic Metabolic 06/10/2019 [facility] Sodium 141 mmol/L Normal 135-145 Panel [address] [place] [address] [phone] Potassium 4.2 mmol/L Normal 3.5-5.0 Chloride 104 mmol/L Normal 101-111 Co2 Carbon Dioxide 30 mmol/L Normal 22-32 Anion Gap 7 mmol/L Normal 2-11 Glucose 86 mg/dL Normal 70-100 Blood Urea Nitrogen 17 mg/dL Normal 6-24 Creatinine 0.97 mg/dL High 0.51-0.95 BUN/Creatinine Ratio 17.5 Normal 8-20 Calcium 9.6 mg/dL Normal 8.6-10.3 Egfr Non- 58.0 >60 Egfr 70.2 >60 3 Laboratory test 06/10/2019 [facility] Magnesium 2.0 mg/dL Normal 1.9-2.[address] [place] [address] [phone] CBC Auto Diff 04/29/2019 [facility] White Blood 5.7 Normal 3.5 -10.[address] Count 10^3/[place] [address] [phone] Red Blood Count 4.74 10^6/uL Normal 3.70-4.87 [...] Blood Cells % 0.1 Comp Metabolic 04/29/2019 [facility] Sodium 138 mmol/L Normal 135-[address] [place] [address] [phone] Potassium 4.6 mmol/L Normal 3.5-5.0 Chloride 105 [...] Egfr Non- 69.4 >60 Egfr 84.0 >60 4 1 SARS-CoV-2 RNA is not detected. ADDITIONAL INFORMATION Testing was performed using the marie SARS-CoV-2 assay ([employer], [employer] on the marie 6800 System. Fact sheets for this Emergency Use Authorization (EUA) assay can be found at the following links: For Healthcare Providers: https://www.fda.gov/media/218714/download For Patients: https://www.fda.gov/media/508875/download Test Performed by: [place] [address] Shank Threader: Rolly Bolden M.D. Ph.D.; CLIA# [id number] 2 SEE RESULT BELOW Name: CLAIRE MORENO : [address]: Christiano Gomez DO Acct: [id number] Unit: [id number] AGE: 63 Location: ENDO Re07/21/19 SEX: F Status: DEP REF SPEC: [id number] MAIRA: 07/21/19- [facility] DR: Christiano Gomez DO REQ: [id number] RECD: 07/21/19-1202 STATUS: BALDEV COLBERT DR: Sadia [...] CONTINUED ON NEXT PAGE DEPARTMENT OF PATHOLOGY, [address] [place] [address] Yann Cabrales M.D. Director [facility] # [id number] 2. The specimen is received in formalin labeled, Proctitis Biopsies, and consists of two reynolds-pink irregular soft tissue fragments averaging 0.3 x 0.2 x 0.1 cm which are submitted entirely in one cassette. Signed by and Reported on: Shanti Dodd MD 07/22/19 1549 END OF REPORT DEPARTMENT OF PATHOLOGY, [address] [place] [address] Yann Cabrales M.D. Director [facility] # [id number] 3 Because ethnic data is not always [...] 15-29 5 Kidney failure <15 (or dialysis) 4 Because ethnic data is not always readily [...] dialysis) Procedures Date Code Description Status 07/21/2019 12150109 Colonoscopy Completed 07/11/2018 [id number] Mammogram Completed 08/22/2017 650654844 Bone Mineral Density Test Completed 06/17/2013 15934390 Colonoscopy Completed Medical Devices Description No Information Available Encounters Type Date Location Provider Dx Diagnosis Office Visit 10/23/2019 [facility] Sadia German MD J06.9 [facility], [facility] R63.4 Abnormal weight loss Office Visit 10/08/2019 2:20p [facility] Charisma Serrano MD J01.90 Acute sinusitis, Medicine - unspecified [facility] Office Visit 08/03/2019 3:40p [facility] Charisma Serrano MD J01.90 Acute sinusitis, Medicine - unspecified [facility] Office Visit 06/10/2019 2:00p [facility] Karolyn F33.1 Major depressive Marleen Manley MD disorder, [facility] recurrent, moderate F41.9 Anxiety disorder, unspecified Office Visit 04/29/2019 11:00a [facility] Karolyn F33.1 [facility] [place] disorder, recurrent, moderate F41.9 Anxiety disorder, unspecified Z23 Encounter for immunization Assessments Date Code Description Provider 10/23/2019 J06.9 Acute upper respiratory infection, unspecified [...] immunization Karolyn Manley MD Plan of Treatment Future Appointment(s):10/30/2019 10:20 am - Sadia German MD at [facility] Internal Medicine - [facility] Functional Status Description No Information Available Mental Status Description No Information Available Referrals Description No Information Available
--- OUTSIDE RECORDS SUMMARY | 2019-10-30 12:06 | XMS REPORT | Continuity of Care Document ---
:1955 External Reference #:[id number] Author Name Sadia German MD Address [address] [place] [address], [place] [address] Care Team Providers Name Role Phone Sadia German M.D. 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 [id number] Quadrivalent, Split, dg Preservative Free 37450 Given 06/10/2018 Influenza Virus Vaccine, [id number] Quadrivalent, Split, Preservative Free 93238 Given 05/06/2017 Pneumonia Vaccine no reaction, pt [id number] tolerated well 68498 Given 05/06/2017 Influenza Virus Vaccine, no immediate [...] Result H/L Range Note Date Laboratory 10/20/2019 [facility] Covid19, PCR Undetected Undetected 1 test finding [address] [place] [address] [phone] Surgical 07/21/2019 [facility] Surgical SEE RESULT 2 Pathology [address] [facility] [place] [address] [phone] PDFReport SEE IMAGE Basic Metabolic 06/10/2019 [facility] Sodium 141 mmol/L Normal 135-145 Panel [address] [place] [address] [phone] Potassium 4.2 mmol/L Normal 3.5-5.0 Chloride 104 mmol/L Normal 101-111 Co2 Carbon Dioxide 30 mmol/L Normal 22-32 Anion Gap 7 mmol/L Normal 2-11 Glucose 86 mg/dL Normal 70-100 Blood Urea Nitrogen 17 mg/dL Normal 6-24 Creatinine 0.97 mg/dL High 0.51-0.95 BUN/Creatinine Ratio 17.5 Normal 8-20 Calcium 9.6 mg/dL Normal 8.6-10.3 Egfr Non- 58.0 >60 Egfr 70.2 >60 3 Laboratory test 06/10/2019 [facility] Magnesium 2.0 mg/dL Normal 1.9-2.[address] [place] [address] [phone] CBC Auto Diff 04/29/2019 [facility] White Blood 5.7 Normal 3.5 -10.[address] Count 10^3/[place] [address] [phone] Red Blood Count 4.74 10^6/uL Normal 3.70-4.87 [...] Blood Cells % 0.1 Comp Metabolic 04/29/2019 [facility] Sodium 138 mmol/L Normal 135-145 Panel [address] [place] [address] [phone] Potassium 4.6 mmol/L Normal 3.5-5.0 Chloride 105 [...] was performed using the marie SARS-CoV-2 assay ([employer] on the marie 6800 System. Fact sheets for this Emergency Use Authorization (EUA) assay can be found at the following links: For Healthcare Providers: https://www.fda.gov/media/420114/download For Patients: https://www.fda.gov/media/763319/download Test Performed by: [facility] [place] [address] Machine Operator: Rolly Bolden M.D. Ph.D.; CLIA# [id number] 2 SEE RESULT BELOW Name: CLAIRE MORENO : [address]: Christiano Gomez DO Acct: [id number] Unit: [id number] AGE: 63 Location: ENDO Re07/21/19 SEX: F Status: DEP REF SPEC: [id number] MAIRA: 07/21/19- SUBM DR: Christiano Gomez DO REQ: [id number] RECD: 07/21/19-1202 STATUS: BALDEV COLBERT DR: Sadia [...] CONTINUED ON NEXT PAGE DEPARTMENT OF PATHOLOGY, [address] [place] [address] Yann Cabrales M.D. Director [facility] # [id number] 2. The specimen is received in formalin labeled, Proctitis Biopsies, and consists of two reynolds-pink irregular soft tissue fragments averaging 0.3 x 0.2 x 0.1 cm which are submitted entirely in one cassette. Signed by and Reported on: Shanti Dodd MD 07/22/19 1549 END OF REPORT DEPARTMENT OF PATHOLOGY, [address] [place] [address] Yann Cabrales M.D. Director [facility] # [id number] 3 Because ethnic data is not always [...] dialysis) Procedures Date Code Description Status 07/11/2018 [id number] Mammogram Completed 08/22/2017 [id number] Bone Mineral Density Test Completed 06/17/2013 [id number] Colonoscopy Completed Medical Devices Description No Information Available Encounters Type Date Location Provider Dx Diagnosis Office Visit 10/08/2019 [facility] Charisma Serrano MD J01.90 Acute sinusitis, 2:20p Medicine - [facility] unspecified Office Visit 08/03/2019 [facility] Charisma Serrano MD J01.90 [facility] 06/10/2019 [facility] Karolyn Manley F33.1 Major depressive 2:00p Medicine - [facility] MALHOTRA disorder, recurrent, moderate F41.9 Anxiety disorder, unspecified Office Visit 04/29/2019 11:00a [facility] Karolyn F33.1 [facility] disorder, recurrent, moderate F41.9 Anxiety [...] immunization Karolyn Manley MD Plan of Treatment 10/23/2019 - Sadia German MDJ06.9 Acute upper respiratory infection, unspecifiedNew Medication:Ventolin HFA 108(90 Base) mcg/Act - 2 by mouth every 4 hours as neededMedrol 4 mg - take as directed on packComments:I suspect you have some inflammation in the airways (like asthma or copd). steroids and the inhaler should help. scheduled a follow up in 1 weekFollow up:1 wk [id number] Abnormal weight lossComments:likely due to chronic diarrhea. try taking metamucil daily to bulk up the stool. continue the probiotic. schedule a follow up with Dr. Gomez (he is available through telemedicine) Functional Status Description No Information Available Mental Status Description No Information Available Referrals Description No Information Available
[2019-10-30 13:43] LABS: Albumin 4.1 g/dL (3.2-5.2); Albumin/Globulin Ratio 1.5 (1-3); BUN/Creatinine Ratio 13.8 (8-20); C Reactive Protein 3.83 mg/L (<8.01); Calcium 9.7 mg/dL (8.6-10.3); EGFR African American 72.8 (>60); EGFR Non-African American 60.1 (>60); Globulin 2.7 g/dL (2-4); Potassium 3.8 mmol/L (3.5-5.0); Total Bilirubin 0.8 mg/dL (0.2-1.0); Total Protein 6.8 g/dL (6.4-8.9)
[2019-10-30] MEDS ORDERED: Albuterol/Ipratropium NEB.SOL* (2.5/0.5 MG) 3 ML NEB.SOLN INH ONE (13:51)
[2019-10-30 14:04] LABS: ABS Eosinophils 0.1 10^3/ul (0-0.6); ABS Lymphocytes 2.3 10^3/ul (1.0-4.8); ABS Monocytes 0.5 10^3/ul (0-0.8); ABS Neutrophils 4.1 10^3/ul (1.5-7.7); Eosinophil % 0.8 %; Hematocrit 44 % (35-47); Hemoglobin 15.4 g/dL (12.0-16.0); Mean Corpuscular HGB Conc 35 g/dL (31-36); Mean Corpuscular Hemoglobin 31 pg (27-31); Mean Corpuscular Volume 90 fL (80-97); Mean Platelet Volume 8.1 fL (7.4-10.4); Nucleated Red Blood Cells % 0.1; Platelet Count 271 10^3/uL (150-450); Red Blood Count 4.94 10^6 /uL (3.70-4.87); Red Cell Distribution Width 15 % (10-15)
[2019-10-30] MEDS ORDERED: Iohexol 350* (CONTRAST) 500 ML MDV IV ONE (14:18)
[2019-10-30 16:14] VITALS: BP 93/77
== END 2019-10-30 16:00 | disposition home or self-care (01) ==
LOC: ED 11:33
DX: R06.00 Dyspnea, unspecified (principal); R06.4 Hyperventilation; R06.02 Shortness of breath; R05 Cough; R06.2 Wheezing; F17.210 Nicotine dependence, cigarettes, uncomplicated; F41.9 Anxiety disorder, unspecified; Z88.2 Allergy status to sulfonamides; Z79.899 Other long term (current) drug therapy; Z20.828 Contact with and (suspected) exposure to other viral communicable diseases
CPT/HCPCS: 36415; 71045; 71275; 80053; 82803; 83605; 83880; 84484; 85025; 85379; 86140; 87040; 87635; 93005; 96374; 99285; A9270-GY; J2930; Q9967; U0003